=== PATIENT | male | born 1975 | race Caucasian/White ===

== ENCOUNTER 2020-04-22 09:11 | Emergency (ER) | payer OTHER ==
[~2020-04-22] VITALS: Ht 175.3 cm; Wt 77.1 kg
[2020-04-22] MEDS ORDERED: PREDNISONE50 MG PO (13:34)
[2020-04-22] MEDS ORDERED: CYCLOBENZAPRINE5 MG PO (13:34)
[2020-04-22 15:00] VITALS: BP 132/82
== END 2020-04-22 15:00 | disposition home or self-care (01) ==
LOC: ER 09:11
DX: S39.012A Strain of muscle, fascia and tendon of lower back, initial encounter (principal); W18.39XA Other fall on same level, initial encounter; Y93.89 Activity, other specified; Y92.89 Other specified places as the place of occurrence of the external cause; Y99.8 Other external cause status